=== PATIENT | male | born 1945 | race Caucasian/White ===

== ENCOUNTER 2017-12-15 13:07 | Outpatient (CLI) | payer MEDICARE | END 2017-12-15 13:08 | disposition home or self-care (01) | LOC: BICMAMMO 13:07 | PROVIDERS: ATTEND Urology | DX: Z13.820 Encounter for screening for osteoporosis (principal); C61 Malignant neoplasm of prostate; M85.852 Other specified disorders of bone density and structure, left thigh; Z79.52 Long term (current) use of systemic steroids | CPT/HCPCS: 77080 ==

== ENCOUNTER 2019-04-17 13:51 | Outpatient (CLI) | payer MEDICARE ==
--- NOTE | 2019-04-17 14:28 | RAD ---
EXAM: Chest 2 views: HISTORY: Cough COMPARISON: None. FINDINGS: Hyperinflation and increased linear and interstitial markings having more chronic appearance. Heart size:Within normal limits. Lungs:Clear of acute process. Atherosclerotic changes of the aorta. No confluent pneumonia, overt edema, pleural effusion, pneumothorax, or other significant acute proce ss. IMPRESSION: Atherosclerosis of the aorta. No acute intrathoracic disease.
== END 2019-04-17 13:52 | disposition home or self-care (01) ==
LOC: SCSRAD 13:51
PROVIDERS: ATTEND Family Medicine
DX: R06.02 Shortness of breath (principal); I70.0 Atherosclerosis of aorta
CPT/HCPCS: 71046

== ENCOUNTER 2020-08-20 10:23 | Outpatient (CLI) | payer MEDICARE | END 2020-08-20 10:24 | disposition home or self-care (01) | LOC: BICMAMMO 10:23 | PROVIDERS: ATTEND Urology | DX: M85.89 Other specified disorders of bone density and structure, multiple sites (principal) | CPT/HCPCS: 77080 ==

== ENCOUNTER 2021-03-04 10:44 | Outpatient (CLI) | payer MEDICARE | END 2021-03-04 10:45 | disposition home or self-care (01) | LOC: BICCT 10:44 | PROVIDERS: ATTEND Family Medicine | DX: Z12.2 Encounter for screening for malignant neoplasm of respiratory organs (principal); Z87.891 Personal history of nicotine dependence; R91.1 Solitary pulmonary nodule; I70.0 Atherosclerosis of aorta; I25.10 Atherosclerotic heart disease of native coronary artery without angina pectoris; N62 Hypertrophy of breast | CPT/HCPCS: 71271 ==

== ENCOUNTER 2021-04-15 13:10 | Emergency (ER) | payer MEDICARE ==
[~2021-04-15 13:10] MED LIST: Iopamidol-370 76% 500 ML 1 ML ONE
[2021-04-15] MEDS ORDERED: Ketorolac Tromethamine 30 MG/ML VIAL ONE (13:48)
[2021-04-15] MEDS ORDERED: Fentanyl 100 MCG/2 ML VIAL ONE (13:48)
[2021-04-15 14:03] LABS: #Basophils 0.1 thou/uL (0.0-0.2); #Eosinphils 0.3 thou/uL (0.0-0.7); #Monocytes 0.7 thou/uL (0.11-0.59); #Neutrophils 4.2 thou/uL (1.40-6.50); %Basophils 1.1 % (0.0-1.0); %Eosinophils 3.8 % (0.0-10.0); %Lymphocytes 27.6 % (21.0-51.0); %Neutrophils 58.5 % (42.0-75.0); Hemoglobin 12.8 g/dL (14.0-18.0); Mean Corpuscular HGB CONC 33.7 g/dL (32.0-36.0); Mean Corpuscular Hemoglobin 29.4 pg (27.0-31.0); Mean Corpuscular Volume 87.3 fL (78.0-98.0); Mean Platelet Volume 8.4 fL (7.4-10.4); Platelet Count 183 thou/uL (130-400); RBC Distribution Width 15.1 % (11.5-14.5); Red Blood Cell (RBC) Count 4.35 mill/uL (4.70-6.10); White Blood Cell (WBC) Count 7.2 thou/uL (4.8-10.8)
[2021-04-15 15:54] LABS: ALT (SGPT) 40 U/L (8-55); AST (SGOT) 33 U/L (5-34); Albumin 3.8 g/dL (3.4-4.8); Alkaline Phosphatase 100 U/L (40-110); Anion Gap 16 mmol/L (10-20); BUN (Urea Nitrogen) 23 mg/dL (8.4-25.7); Bilirubin, Total 0.8 mg/dL (0.2-1.2); CK (CPK) 120 U/L (30-200); Calc. Creatinine Clearance 0 mL/min (70-130); Calcium 9.1 mg/dL (7.8-10.44); Carbon Dioxide 21 mmol/L (23-31); Chloride 107 mmol/L (98-107); Globulin 3.4 g/dL (2.4-3.5); Glucose 178 mg/dL (83-110); Lipase 43 U/L (8-78); Potassium 4.1 mmol/L (3.5-5.1); Protein, Total 7.2 g/dL (5.8-8.1); Sodium 140 mmol/L (136-145)
[2021-04-15] MEDS ORDERED: Morphine 4 MG/ML VIAL ONE (16:55)
== END 2021-04-15 17:00 | disposition home or self-care (01) ==
LOC: ERS 13:10
DX: R07.89 Other chest pain (principal); Z79.899 Other long term (current) drug therapy; Z79.84 Long term (current) use of oral hypoglycemic drugs; E11.9 Type 2 diabetes mellitus without complications; E78.5 Hyperlipidemia, unspecified; I10 Essential (primary) hypertension
CPT/HCPCS: 71275; 80053; 82550; 83690; 83880; 84484; 85025; 93005; 96374; 96375; J1885; J2270; J3010

== ENCOUNTER 2022-03-10 14:31 | Outpatient (CLI) | payer MEDICARE | END 2022-03-10 14:32 | disposition home or self-care (01) | LOC: BICCT 14:31 | PROVIDERS: ATTEND Family Medicine | DX: Z12.2 Encounter for screening for malignant neoplasm of respiratory organs (principal); Z87.891 Personal history of nicotine dependence | CPT/HCPCS: 71271 ==

== ENCOUNTER 2022-10-02 03:15 | Inpatient (IN) | payer MEDICARE ==
[2022-10-02] MEDS: Morphine 4 MG/ML VIAL SLOW IVP PRN ×2 (04:48→20:50)
[2022-10-02] MEDS ORDERED: Calcium Carbonate 500 MG ChewTAB PO PRN (07:36)
[2022-10-02] MEDS ORDERED: Ondansetron ODT 4 MG TAB PO PRN (07:36)
[2022-10-02] MEDS ORDERED: Senokot S 8.6-50 MG TAB PO PRN (07:36)
[2022-10-02] MEDS ORDERED: Acetaminophen 325 MG TAB PO PRN (07:36)
[2022-10-02] MEDS ORDERED: Ondansetron PF 4 MG/2 ML Vial IVP PRN (07:36)
[2022-10-02] MEDS ORDERED: Dextrose 50% Abboject 50 ML SYRINGE SLOW IVP PRN (07:43)
[2022-10-02] MEDS ORDERED: hydrALAZINE 20 MG/ML VIAL SLOW IVP PRN (07:43)
[2022-10-02] MEDS ORDERED: Dextrose 5% in Water 1,000 ML IV PRN (07:43)
[2022-10-02] MEDS ORDERED: HumaLOG 300 UNITS/3 ML VIAL SC PRN ×2 (07:43)
[2022-10-02] MEDS: HYDROcodone/Acetaminophen 5/325 mg Tablet PO PRN ×2 (08:19→17:30)
[2022-10-02] MEDS: Sodium Chloride 0.9% 1,000 ML IV SCH ×2 (08:19→20:57)
[2022-10-02] MEDS: Amlodipine 10 MG TAB PO SCH (08:20)
[2022-10-02] MEDS: Sertraline 100 MG TAB PO SCH (08:20)
[2022-10-02 08:55] LABS: Anion Gap 16 mmol/L (10-20); BUN (Urea Nitrogen) 31 mg/dL (8.4-25.7); Calc. Creatinine Clearance 0 mL/min (70-130); Calcium 9.7 mg/dL (7.8-10.44); Carbon Dioxide 22 mmol/L (23-31); Chloride 102 mmol/L (98-107); Estimated GFR 47; Glucose 152 mg/dL (83-110); Potassium 3.8 mmol/L (3.5-5.1); Sodium 136 mmol/L (136-145)
[2022-10-02] MEDS ORDERED: hydrALAZINE 25 MG TAB PO SCH (10:45)
[2022-10-02 11:52] VITALS: BMI 26.7
[2022-10-02] MEDS: Rivaroxaban 15 MG TAB PO SCH (17:31)
[2022-10-02] MEDS: Mometasone 200 MCG/Formoterol 5 MCG 120 PUFF INHALER INH SCH (18:37)
[2022-10-02] MEDS: Atorvastatin Calcium 10 MG TAB PO SCH (20:45)
[2022-10-02] MEDS: Montelukast Sodium 10 mg Tablet PO SCH (20:45)
[2022-10-02] MEDS: hydrALAZINE 25 MG TAB PO SCH (20:45)
[2022-10-03] MEDS: HYDROcodone/Acetaminophen 5/325 mg Tablet PO PRN ×2 (04:07→19:23)
[2022-10-03 04:52] LABS: #Basophils 0.1 thou/uL (0.0-0.2); #Eosinphils 0.3 thou/uL (0.0-0.7); #Lymphocytes 1.9 thou/uL (1.20-3.40); #Monocytes 0.7 thou/uL (0.11-0.59); #Neutrophils 3.4 thou/uL (1.40-6.50); %Basophils 0.8 % (0.0-1.0); %Eosinophils 5.5 % (0.0-10.0); %Lymphocytes 29.6 % (21.0-51.0); %Neutrophils 53.1 % (42.0-75.0); Hemoglobin 13.8 g/dL (14.0-18.0); Mean Corpuscular HGB CONC 35.1 g/dL (32.0-36.0); Mean Corpuscular Hemoglobin 30.1 pg (27.0-31.0); Mean Corpuscular Volume 85.9 fl (78.0-98.0); Mean Platelet Volume 8.6 fL (7.4-10.4); Platelet Count 166 10x3/uL (130-400); RBC Distribution Width 15.6 % (11.5-14.5); Red Blood Cell (RBC) Count 4.58 mill/uL (4.70-6.10); White Blood Cell (WBC) Count 6.4 10x3/uL (4.8-10.8)
[2022-10-03 05:06] LABS: Hemoglobin A1c 7.1 % (4.0-6.0)
[2022-10-03 05:14] LABS: ALT (SGPT) 11 U/L (8-55); AST (SGOT) 15 U/L (5-34); Albumin 3.6 g/dL (3.4-4.8); Alkaline Phosphatase 91 U/L (40-110); Anion Gap 14 mmol/L (10-20); BUN (Urea Nitrogen) 19 mg/dL (8.4-25.7); Bilirubin, Total 0.9 mg/dL (0.2-1.2); Calc. Creatinine Clearance 72 mL/min (70-130); Calcium 9.3 mg/dL (7.8-10.44); Carbon Dioxide 22 mmol/L (23-31); Cardiac Risk 5.4 (Less than 4.5); Chloride 104 mmol/L (98-107); Cholesterol 151 mg/dl (< 200 Desired); Estimated GFR 60; Globulin 3.6 g/dL (2.4-3.5); Glucose 148 mg/dL (83-110); HDL Cholesterol 28 mg/dL (>60 Neg Risk); LDL Cholesterol, Calculated 94 mg/dL; Potassium 3.8 mmol/L (3.5-5.1); Protein, Total 7.2 g/dL (5.8-8.1); Sodium 136 mmol/L (136-145); Triglycerides 143 mg/dL (Less than 150)
[2022-10-03] MEDS: Mometasone 200 MCG/Formoterol 5 MCG 120 PUFF INHALER INH SCH ×2 (06:45→19:18)
[2022-10-03] MEDS: Amlodipine 10 MG TAB PO SCH (09:31)
[2022-10-03] MEDS: Sertraline 100 MG TAB PO SCH (09:31)
[2022-10-03] MEDS: hydrALAZINE 25 MG TAB PO SCH ×2 (09:31→20:47)
[2022-10-03] MEDS: Rivaroxaban 15 MG TAB PO SCH (17:26)
[2022-10-03] MEDS: Atorvastatin Calcium 10 MG TAB PO SCH (20:47)
[2022-10-03] MEDS: Montelukast Sodium 10 mg Tablet PO SCH (20:47)
[2022-10-04] MEDS: HYDROcodone/Acetaminophen 5/325 mg Tablet PO PRN (04:44)
[2022-10-04] MEDS: Mometasone 200 MCG/Formoterol 5 MCG 120 PUFF INHALER INH SCH (06:45)
[2022-10-04] MEDS: hydrALAZINE 25 MG TAB PO SCH ×2 (08:53→14:04)
[2022-10-04] MEDS: Amlodipine 10 MG TAB PO SCH (08:54)
[2022-10-04] MEDS: Sertraline 100 MG TAB PO SCH (08:54)
[2022-10-04] MEDS ORDERED: HYDROcodone/Acetaminophen 5/325 mg Tablet PO PRN (10:06)
[2022-10-04 11:32] VITALS: BP 135/61; TEMP 98.2
== END 2022-10-04 15:10 | disposition home or self-care (01) | DRG 309 ==
LOC: 2NO 04:12 → OBSVTOIN 10-03 19:35
PROVIDERS: ADMIT Internal Medicine; ATTEND Family Medicine
DX: I49.5 Sick sinus syndrome (principal); I47.20 Ventricular tachycardia, unspecified; I48.20 Chronic atrial fibrillation, unspecified; N17.9 Acute kidney failure, unspecified; J44.9 Chronic obstructive pulmonary disease, unspecified; E78.5 Hyperlipidemia, unspecified; E11.22 Type 2 diabetes mellitus with diabetic chronic kidney disease; N18.9 Chronic kidney disease, unspecified; I12.9 Hypertensive chronic kidney disease with stage 1 through stage 4 chronic kidney disease, or unspecified chronic kidney disease; W19.XXXA Unspecified fall, initial encounter; Y92.9 Unspecified place or not applicable; Z86.73 Personal history of transient ischemic attack (TIA), and cerebral infarction without residual deficits; Z79.01 Long term (current) use of anticoagulants
CPT/HCPCS: 36415; 36416; 80048; 80053; 80061; 83036; 83880; 84443; 85025; 93005; 93010; 93306; 96376; G0378; G0379; J1815; J2270; J7050